=== PATIENT | male | born 1960 | race Caucasian/White ===

== ENCOUNTER → 2019-02-26 10:14 | Outpatient (BNVA) | payer OTHER, SELFPAY | PROVIDERS: Family Provider Family Medicine Adult Medicine; PCP Emergency Medicine Emergency Medical Services; Visit Provider Surgery | DX: L98.9 Disorder of the skin and subcutaneous tissue, unspecified (principal) | CPT/HCPCS: 88305 ==

== ENCOUNTER 2020-02-29 10:57 | Outpatient (CLI) | payer OTHER, SELFPAY ==
--- NOTE | 2020-02-29 11:23 | CT_ITS ---
WS: [id number] CT CHEST TECHNIQUE: Contrast enhanced CT of the chest with coronal and sagittal reformatted images. CLINICAL INFORMATION: ABNORMAL CHEST XRAY COMPARISON: None. DLP: 1011.[address] scans at [facility] use at least one of these dose optimization techniques: automat ed exposure control; mA and/or kV adjustment per patient size (includes targeted exams where dose is matched to clinical indication); or iterative reconstruction. FINDINGS: Moderate to advanced chronic emphysematous changes. No acute pulmonary infiltrates. No consolidation or pleural fluid. Mild aortic calcification. Normal caliber thoracic aorta. Proximal main pulmonary a rteries are normal. 5 mm noncalcified nodule or focal pleural thickening along the right fissure. Rec ommend 12 month follow-up. Prominent AP window lymph node measuring 10 mm is nonspecific but likely r eactive. Adrenal glands are normal. Partially visualized low-attenuation lesion likely renal cyst upper pole l eft kidney. Hepatomegaly. Diffuse fatty infiltration liver. Normal GE junction. No mediastinal or hilar lymphaden opathy. No axillary lymphadenopathy. Coronary calcification. Ankylosis thoracic spine. CT/CT chest w con* [id number] IMPRESSION: 1. Moderate chronic emphysematous changes. No acute pulmonary infiltrates. 2. Slight atelectasis in the lung bases. 3. 5 mm noncalcified nodule or focal pleural thickening along the right fissur e. Recommend 12 month follow-up. 4. Prominent left AP window lymph node measuring 10 mm nonspecific but likely reactive. 5. Partially visualized low-attenuation lesion upper pole left kidney likely r epresents renal cyst. This is incompletely visualized and could be followed up with ultrasound or contrast-enhanced CT abdomen pelvis.
[2020-02-29] MEDS: iodixanol 320 mg/mL 100mL Btl IV (11:45)
== END 2020-02-29 10:58 | disposition home or self-care (01) ==
LOC: RADWPI 11:03
PROVIDERS: PCP Emergency Medicine Emergency Medical Services; Visit Provider Emergency Medicine Emergency Medical Services
DX: R93.89 Abnormal findings on diagnostic imaging of other specified body structures (principal); J98.11 Atelectasis
CPT/HCPCS: 71260; Q9967

== ENCOUNTER 2020-04-18 12:15 | Outpatient (CLI) | payer OTHER, SELFPAY ==
--- NOTE | 2020-04-18 12:21 | US_ITS ---
WS: [id number] ULTRASOUND RENAL TECHNIQUE: Ultrasound examination of both kidneys. CLINICAL INFORMATION: ?LEFT RENAL CYST COMPARISON: None. FINDINGS: RIGHT: Right kidney is normal in size and appearance. Echogenicity: Normal. Cortical thickness: 1.4 cm; Normal. Hydronephrosis: None. Perinephric fluid: None. Right kidney measures: 13.3 cm x 6.4 cm x 5.6 cm. LEFT: Left inferior pole simple renal cysts measuring 2.9 x 2.8 x 3.4 cm and 2.6 x 3.1 x 2.3 cm. Left kidney is normal in size and appearance. Echogenicity: Normal. Cortical thickness: 1.7 cm; Normal. Hydronephrosis: None. Perinephric fluid: None. Left kidney measures: 13.0 cm x 6.8 cm x 7.3 cm. Normal visualized aorta. Normal bladder. Partially visualized prostate. US/US renal BI* [id number] IMPRESSION: 1. Two left inferior pole simple renal cysts measuring 2.9 x 2.8 x 3.4 cm and 2.6 x 3.1 x 2.3 cm. 2. No hydronephrosis in either kidney.
== END 2020-04-18 12:16 | disposition home or self-care (01) ==
LOC: US 12:20
PROVIDERS: PCP Emergency Medicine Emergency Medical Services; Visit Provider Emergency Medicine Emergency Medical Services
DX: N28.1 Cyst of kidney, acquired (principal)
CPT/HCPCS: 76770

== ENCOUNTER → 2021-02-17 11:15 | Outpatient (BNVA) | payer OTHER, SELFPAY | PROVIDERS: PCP Emergency Medicine Emergency Medical Services; Visit Provider Internal Medicine Cardiovascular Disease | DX: R06.02 Shortness of breath (principal); I50.33 Acute on chronic diastolic (congestive) heart failure; N18.9 Chronic kidney disease, unspecified; R06.00 Dyspnea, unspecified; R60.9 Edema, unspecified; E11.65 Type 2 diabetes mellitus with hyperglycemia; Z79.4 Long term (current) use of insulin; E78.2 Mixed hyperlipidemia; D75.1 Secondary polycythemia | CPT/HCPCS: 80048; 83880; 84443 ==

== ENCOUNTER 2021-04-10 07:17 | Outpatient (CLI) | payer OTHER, SELFPAY ==
--- NOTE | 2021-04-10 08:00 | USCV_ITS ---
Ishaan Grey Age: 60 Gender: M : 1960 Exam Date: 04/10/2021 07:41 Ordering Phys: Christine Calderon MD ([email or web address]) Technologist: Exam Location: [facility] [place] Indication: SOB BP: 165 / 76 HR: 78 Rhythm: Sinus Technical Quality: Very technically difficult study MEASUREMENTS (Male / Female) Normal Values 2D ECHO LV Diastolic Diameter PLAX 3.5 cm 4.2 - 5.9 / 3.9 - 5.3 cm LV Systolic Diameter PLAX 2.6 cm IVS Diastolic Thickness 1.0 cm 0.6 - 1.0 / 0.6 - 0.9 cm IVS Systolic Thickness 1.7 cm LVPW Diastolic Thickness 1.4 cm 0.6 - 1.0 / 0.6 - 0.9 cm LVPW Systolic Thickness 1.3 cm LVOT Diameter 2.1 cm LV Ejection Fraction 2D Teich 51.6 % LV Ejection Fraction MOD 2C 67.9 % LV Ejection Fraction 2C AL 67.8 % LA Diameter 4.4 cm Aorta at Sinotubular Diameter 3.3 cm M-MODE Aortic Annulus Diameter 4.8 cm LA Ao Ratio MM 0.8 MV E Point Septal Separation 1.1 cm DOPPLER AV Peak Velocity 144.0 cm/s LVOT Peak Velocity 120.0 cm/s AV Area Cont Eq vti 3.2 cm squared AV Area Cont Eq pk 2.9 cm squared MV Area PHT 5.9 cm squared Mitral E to A Ratio 0.9 MV E' Velocity 107.0 cm/s TR Peak Velocity 111.0 cm/s TR Peak Gradient 4.9 mmHg TV Peak E Velocity 106.0 cm/s Right Atrial Pressure 3.0 mmHg Pulmonary Artery Systolic Pressu 7.9 mmHg FINDINGS Left Ventricle Normal left ventricular size and systolic function, EF 64 %. No regional wall motion abnormalities. Right Ventricle The right ventricle is normal in size and function. Right Atrium The right atrium is normal in size. Left Atrium The left atrium is normal in size. Mitral Valve Mild mitral annular calcification. Aortic Valve No gross abnormalities noted . Tricuspid Valve No gross abnormalities noted Pulmonic Valve Pulmonic valve not well visualized. Pericardium Normal pericardium without effusion. Aorta Normal aortic annulus size. CONCLUSIONS Normal left ventricular size and systolic function, EF 64 %. No regional wall motion abnormalities. Mild mitral annular calcification. There is no pericardial effusion. No significant stenotic or regurgitant lesions Technically difficult study because of the poor ultrasonic window Dr Christine Calderon MD FACC (Electronically Signed) Final Date: 10 April 2021 11:21 S
== END 2021-04-10 07:18 | disposition home or self-care (01) ==
LOC: RAD 07:18
PROVIDERS: PCP Emergency Medicine Emergency Medical Services; Visit Provider Internal Medicine Cardiovascular Disease
DX: R06.02 Shortness of breath (principal); R06.00 Dyspnea, unspecified; I34.8 Other nonrheumatic mitral valve disorders
CPT/HCPCS: 93306

== ENCOUNTER → 2021-05-01 10:24 | Outpatient (BNVA) | payer OTHER, SELFPAY | PROVIDERS: PCP Emergency Medicine Emergency Medical Services; Visit Provider Internal Medicine Pulmonary Disease | DX: R91.1 Solitary pulmonary nodule (principal); G47.33 Obstructive sleep apnea (adult) (pediatric); J41.8 Mixed simple and mucopurulent chronic bronchitis; R06.02 Shortness of breath; R93.89 Abnormal findings on diagnostic imaging of other specified body structures; Z12.2 Encounter for screening for malignant neoplasm of respiratory organs; E78.5 Hyperlipidemia, unspecified; I10 Essential (primary) hypertension; F32.9 Major depressive disorder, single episode, unspecified; Z87.891 Personal history of nicotine dependence | CPT/HCPCS: 99214 ==

== ENCOUNTER → 2021-07-01 10:13 | Outpatient (BNVA) | payer OTHER, SELFPAY | PROVIDERS: PCP Emergency Medicine Emergency Medical Services; Visit Provider Internal Medicine Pulmonary Disease | DX: J41.8 Mixed simple and mucopurulent chronic bronchitis (principal); R06.02 Shortness of breath; G47.33 Obstructive sleep apnea (adult) (pediatric); R93.89 Abnormal findings on diagnostic imaging of other specified body structures; Z12.2 Encounter for screening for malignant neoplasm of respiratory organs; Z87.891 Personal history of nicotine dependence; E11.8 Type 2 diabetes mellitus with unspecified complications; E78.5 Hyperlipidemia, unspecified; I10 Essential (primary) hypertension | CPT/HCPCS: 99214 ==

== ENCOUNTER 2021-07-21 20:00 | Outpatient (CLI) | payer OTHER, SELFPAY | END 2021-07-21 20:01 | disposition home or self-care (01) | LOC: SLEEP 07-22 08:14 | PROVIDERS: PCP Emergency Medicine Emergency Medical Services; Visit Provider Family Medicine | DX: G47.33 Obstructive sleep apnea (adult) (pediatric) (principal) | CPT/HCPCS: 95811 ==

== ENCOUNTER → 2021-08-27 09:59 | Outpatient (BNVA) | payer OTHER, SELFPAY | PROVIDERS: PCP Family Medicine; Visit Provider Internal Medicine Pulmonary Disease | DX: R42 Dizziness and giddiness; J41.8 Mixed simple and mucopurulent chronic bronchitis; J96.12 Chronic respiratory failure with hypercapnia; G47.33 Obstructive sleep apnea (adult) (pediatric); R93.89 Abnormal findings on diagnostic imaging of other specified body structures; Z99.81 Dependence on supplemental oxygen; Z87.891 Personal history of nicotine dependence; R55 Syncope and collapse; I44.0 Atrioventricular block, first degree; I49.1 Atrial premature depolarization; I49.3 Ventricular premature depolarization | CPT/HCPCS: 93270; 99214 ==

== ENCOUNTER 2021-09-08 13:38 | Outpatient (CLI) | payer OTHER, SELFPAY ==
--- NOTE | 2021-09-08 14:23 | PFTS_ITS ---
Date of Study:09/08/21 Date of Dictation: MECHANICS: Forced vital capacity (FVC) is reduced. Forced expiratory volume in one second (FEV1) is reduced. FEV1/FVC is reduced. FLOW VOLUME LOOP: Reduced lateral lung volumes with significant scooping. LUNG VOLUMES: Total lung capacity (TLC) is reduced. Residual volume (RV) is normal. DIFFUSING CAPACITY FOR CARBON MONOXIDE: Severely reduced. INTERPRETATION: The postbronchodilator spirometry is consistent with severe airflow obstruction. There is no significant postbronchodilator response. Lung volumes are consistent with mild restriction. Gas exchange (DLCO) is severely reduced. MTDD
--- NOTE | 2021-09-08 14:35 | CT_ITS ---
WS: [id number] CT CHEST TECHNIQUE: Noncontrast CT of the chest with coronal and sagittal reformatted images. CLINICAL INFORMATION: LESION OF LUNG/12 MON F/U LUNG NODULE COMPARISON: February 29, 2020 DLP: 1154.[address] scans at [facility] use at least one of these dose optimization techniques: automated e xposure control; mA and/or kV adjustment per patient size (includes targeted exams where dose is matc hed to clinical indication); or iterative reconstruction. FINDINGS: Previously described tiny 5 mm nodular pleural thickening along the RIGHT fissure is unchanged. Howev er, there is a new suspicious RIGHT upper lobe pulmonary nodule measuring 15 mm suspicious for neopla sm. Recommend further evaluation with PET/CT.This is in the anterior RIGHT middle lobe. This is new f rom February 29, 2020 Normal caliber thoracic aorta.Aortic calcification. Coronary calcification. Enlarged anterior mediast inal and peribronchial lymph nodes the largest measuring 1.8 x 3.2 cm. Enlarged AP window lymph node measuring 15 mm. Enlarged RIGHT hilar lymph nodes also new from previous largest measuring 15 mm. Mar kedly enlarged subcarinal lymphadenopathy. No axillary lymphadenopathy. Normal caliber thoracic aorta . Aortic calcification. Coronary calcification. Adrenal glands are normal. Normal GE junction. Partially visualized hepatomegaly and mild splenomegal y. Mild thoracic kyphosis with hypertrophic changes and partial ankylosis. CT/CT chest wo con [id number] IMPRESSION: 1. Previously described 5 mm tiny nodule along the RIGHT fissure is unchanged. 2. However, there is a new suspicious 15 mm RIGHT middle lobe lesion suspiciou s for neoplasm. This is new compared to previous. Recommend further evaluation with PET/CT. 3. In addition, there is new suspicious mediastinal,AP window, subcarinal, and RIGHT hilar lymphadenopathy described above. Recommend further evaluation with PET/CT. 4. Aortic and coronary calcification. 5. No other interval changes.
== END 2021-09-08 13:39 | disposition home or self-care (01) ==
PROVIDERS: PCP Family Medicine; Visit Provider Internal Medicine Pulmonary Disease
DX: J41.8 Mixed simple and mucopurulent chronic bronchitis (principal); R06.02 Shortness of breath; I70.0 Atherosclerosis of aorta; I25.10 Atherosclerotic heart disease of native coronary artery without angina pectoris
CPT/HCPCS: 71250; 94060; 94618; 94726; 94729; J7614